=== PATIENT | female | born 1990 | race Caucasian/White ===

== ENCOUNTER 2020-12-09 17:47 | Emergency (ER) | payer OTHER ==
[~2020-12-09] VITALS: Ht 149.9 cm; Wt 75.0 kg
[~2020-12-09 17:47] MED LIST: AMOXICILLIN500 MG PO; CIPRO500 MG OR; FLAGYL500 MG OR; NO CURRENT MEDS; PERIDEX0.12 % MT; ZOFRAN4 M1 OR
[2020-12-09 18:50] LABS: HEMATOCRIT 45.9 % (37.0-47.0); HEMOGLOBIN 14.8 g/dl (12.0-16.0); IMMATURE GRANULOCYTES 0.4 % (0.0-5.0); MEAN CELL VOLUME 91.8 fL CALC (80.0-100.0); MEAN CORPUSCULAR HGB 29.6 pG CALC (26.0-32.0); MEAN CORPUSCULAR HGB CONC 32.2 g/dL CAL (32.0-36.0); NEUT# 17.47 thou/uL (2.00-7.15); RED CELL DISTRI WIDTH 12.6 % (11.5-15.5)
[2020-12-09 18:54] LABS: ALBUMIN 5.1 g/dL (3.2-5.0); ALKALINE PHOSPHATASE 109 u/l (38-126); AMYLASE 57 u/l (30-110); ANION GAP 16 (6-22 (CALC)); BUN 14 mg/dL (7-17); BUN/CREATININE RATIO 20 (12-20 (CALC)); CARBON DIOXIDE 22 mmol/l (22-30); CHLORIDE 103 mmol/l (95-108); CREATININE 0.7 mg/dL (0.5-1.0); GFR > 60 ML/MIN (>=60 (CALC)); GFR FOR AFR.AMER. > 60 ML/MIN (>=60 (CALC)); LIPASE 51 u/l (23-300); SGOT/AST 23 u/l (14-36); SODIUM 136 mmol/l (137-146); TOTAL PROTEIN 8.8 g/dL (6.3-8.2)
[2020-12-09 19:03] LABS: BILIRUBIN, TOTAL 0.7 mg/dL (0.0-1.4)
[2020-12-09 19:10] LABS: BETA-HCG, QUANT(RESULT NUMBER) 10522 mIU/mL
[2020-12-09 19:57] LABS: URINE BLOOD DIPSTICK SMALL (NEGATIVE); URINE COLOR YELLOW; URINE GLUCOSE - DIPSTICK NEGATIVE (NEGATIVE); URINE KETONE 40 mg/dL (NEGATIVE); URINE LEUK ESTERASE TRACE (NEGATIVE); URINE NITRITE - DIPSTICK NEGATIVE (Negative); URINE PROTEIN - DIPSTICK 100 mg/dL (NEG-TRACE); URINE SPECIFIC GRAVITY >=1.030; URINE UROBILINOGEN - DIPSTICK 0.2 E.U./dL (0.2)
[2020-12-09 20:14] LABS: URINE BILIRUBIN - DIPSTICK NEGATIVE (NEGATIVE)
[2020-12-09 20:15] LABS: URINE BACTERIA MANY hpf; URINE SQUAMOUS EPITHELIAL CELL FEW EPI/hpf (0-FEW)
[2020-12-09] MEDS ORDERED: ZOFRAN4 MG/TAB PO (20:19)
[2020-12-09] MEDS ORDERED: KEFLEX500 M1 PO (20:28)
[2020-12-09 20:45] VITALS: BP 119/66
== END 2020-12-09 20:45 | disposition home or self-care (01) | DRG 833 ==
LOC: ED 17:47
DX: O99.611 Diseases of the digestive system complicating pregnancy, first trimester (principal); A08.4 Viral intestinal infection, unspecified; Z3A.08 8 weeks gestation of pregnancy; Z20.822 Contact with and (suspected) exposure to COVID-19

== ENCOUNTER 2021-03-03 | Emergency (ER) | payer BC ==
[~2021-03-03] MED LIST changes: +KEFLEX500 M1 PO; +ZOFRAN4 MG/TAB PO
[2021-03-03] MEDS ORDERED: PRENATAL1 TA1 PO (17:21)
[2021-03-03 17:47] LABS: IMMATURE GRANULOCYTES 0.6 % (0.0-5.0); MEAN CELL VOLUME 89.9 fL CALC (80.0-100.0); MEAN CORPUSCULAR HGB 29.9 pG CALC (26.0-32.0); MEAN CORPUSCULAR HGB CONC 33.2 g/dL CAL (32.0-36.0); NEUT# 11.72 thou/uL (2.00-7.15); RED BLOOD COUNT 4.05 mill/uL (4.20-5.60)
[2021-03-03 17:48] LABS: HEMATOCRIT 36.4 % (37.0-47.0); HEMOGLOBIN 12.1 g/dl (12.0-16.0)
[2021-03-03 17:49] LABS: URINE BLOOD DIPSTICK LARGE (NEGATIVE); URINE GLUCOSE - DIPSTICK NEGATIVE (NEGATIVE); URINE KETONE 15 mg/dL (NEGATIVE); URINE LEUK ESTERASE NEGATIVE (NEGATIVE); URINE PH 5.5 (4.5-8.0); URINE PROTEIN - DIPSTICK 100 mg/dL (NEG-TRACE); URINE SPECIFIC GRAVITY >=1.030; URINE UROBILINOGEN - DIPSTICK 0.2 E.U./dL (0.2)
[2021-03-03 17:51] LABS: URINE BILIRUBIN - DIPSTICK NEGATIVE (NEGATIVE); URINE COLOR AMBER; URINE NITRITE - DIPSTICK NEGATIVE (Negative)
[2021-03-03 17:54] LABS: URINE RBC 50-100 RBC/hpf (0-5); URINE SQUAMOUS EPITHELIAL CELL FEW EPI/hpf (0-FEW); URINE WBC 0-2 WBC/hpf (0-5)
[2021-03-03 18:12] LABS: ANION GAP 11 (6-22 (CALC)); BUN 9 mg/dL (7-17); BUN/CREATININE RATIO 19 (12-20 (CALC)); CARBON DIOXIDE 20 mmol/l (22-30); CHLORIDE 105 mmol/l (95-108); CREATININE 0.5 mg/dL (0.5-1.0); GFR > 60 ML/MIN (>=60 (CALC)); GFR FOR AFR.AMER. > 60 ML/MIN (>=60 (CALC)); POTASSIUM 3.7 mmol/l (3.5-5.1); SODIUM 133 mmol/l (137-146)
[2021-03-03] MEDS ORDERED: LORTAB 5/3255 MG PO (20:18)
[2021-03-03] MEDS ORDERED: TAMSULOSIN0.4 MG PO (20:18)
[2021-03-03] MEDS ORDERED: KEFLEX500 M1 PO (20:20)
== END 2021-03-03 20:48 | disposition home or self-care (01) | DRG 833 ==
PROVIDERS: Emergency Medicine
DX: O26.832 Pregnancy related renal disease, second trimester (principal); N20.0 Calculus of kidney; Z3A.18 18 weeks gestation of pregnancy

== ENCOUNTER 2023-07-12 08:29 | Observation (INO) | payer OTHER ==
[~2023-07-12] VITALS: Ht 149.9 cm; Wt 70.4 kg
[2023-07-12] VITALS (13 sets, daily range): BP systolic 105–137; BP diastolic 56–85
[~2023-07-12 08:29] MED LIST changes: +LORTAB 5/3255 MG PO; +PHENTERMINE H37.5 M1 PO; +PHENTERMINE H37.5 M2 PO; +PHENTERMINE HCL15 MG PO; +PRENATAL1 TA1 PO; +TAMSULOSIN0.4 MG PO
--- NOTE | 2023-07-12 08:56 | NUR ---
AMB TO ROOM 15 WITH STEADY GAIT.
[2023-07-12 09:35] LABS: BASO% 0.2 % (0-3); EOS% 1.6 % (0-8); HEMATOCRIT 36.4 % (37.0-47.0); HEMOGLOBIN 11.4 g/dl (12.0-16.0); IMMATURE GRANULOCYTES 0.2 % (0.0-5.0); LYMPH% 28.9 % (15-41); MEAN CELL VOLUME 93.1 fL CALC (80.0-100.0); MEAN CORPUSCULAR HGB 29.2 pG CALC (26.0-32.0); MEAN CORPUSCULAR HGB CONC 31.3 g/dL CAL (32.0-36.0); MONO% 7.9 % (2-13); NEUT# 3.43 thou/uL (2.00-7.15); NEUT% 61.2 % (42-76); RED BLOOD COUNT 3.91 mill/uL (4.20-5.60); RED CELL DISTRI WIDTH 11.9 % (11.5-15.5)
[2023-07-12 09:51] LABS: URINE BILIRUBIN - DIPSTICK Negative (NEGATIVE); URINE BLOOD DIPSTICK Moderate (NEGATIVE); URINE GLUCOSE - DIPSTICK Negative (NEGATIVE); URINE KETONE Negative (NEGATIVE); URINE LEUK ESTERASE Negative (NEGATIVE); URINE NITRITE - DIPSTICK Negative (Negative); URINE PH 8.5 (4.5-8.0); URINE PROTEIN - DIPSTICK Trace mg/dL (NEG-TRACE); URINE UROBILINOGEN - DIPSTICK 0.2 E.U./dL (0.2)
[2023-07-12 09:56] LABS: URINE COLOR Yellow; URINE EPITHELIAL CELLS FEW EPI/hpf (0-FEW); URINE RBC 25-50 RBC/hpf (0-5)
[2023-07-12 10:04] LABS: ALBUMIN 4.1 g/dL (3.2-5.0); ALKALINE PHOSPHATASE 78 u/l (38-126); BUN 13 mg/dL (7-17); BUN/CREATININE RATIO 21 (12-20 (CALC)); CHLORIDE 106 mmol/l (95-108); CREATININE 0.6 mg/dL (0.5-1.0); GFR FOR AFR.AMER. > 60 ML/MIN (>=60 (CALC)); GFR OTHER RACES > 60 ML/MIN (>=60 (CALC)); LIPASE 77 u/l (23-300); POTASSIUM 3.6 mmol/l (3.5-5.1); SGOT/AST 32 u/l (14-36); TOTAL PROTEIN 7.2 g/dL (6.3-8.2)
[2023-07-12 10:10] LABS: ANION GAP 11 (6-22 (CALC)); BILIRUBIN, TOTAL 0.3 mg/dL (0.02-1.3); CARBON DIOXIDE 27 mmol/l (22-30); SODIUM 140 mmol/l (137-146)
--- NOTE | 2023-07-12 10:50 | NUR ---
PT WITH HOB ELEVATED, AIRWAY PATENT, RESP EVEN AND NON LABORED, SKIN P/W/D.
--- NOTE | 2023-07-12 11:07 | NUR ---
PT SITTING UP IN BED, IVF INFUSING WITHOUT DIFFICULTY, SITE WNL. VSS.
--- NOTE | 2023-07-12 11:49 | NUR ---
pt taken to med surg via wc in stable condition.
--- NOTE | 2023-07-12 12:03 | NUR ---
REPORT RECEIVED FROM JANEL IN ED, PT ARRIVED ON UNIT @ 1135 TRANSPORTED VIA W/C BY ED STAFF AND TRANSFERRED TO BED. ALERT AND ORIENTED X 4, C/O SHARP RUQ PAIN @ 03/18, ORIENED TO ROOM AND CALL MURILLO, SETTLED IN BED, WILL CONTINUE TO MONITOR.
--- NOTE | 2023-07-12 16:37 | NUR ---
OR STAFF HERE AT THIS TIME, RECEIVED PT ON STRETCHER AND TRANSPORTED OFF UNIT TO OR FOR PROCEDURE.
--- NOTE | 2023-07-12 18:56 | NUR ---
PT ARRIVED ON UNIT AT THIS TIME (1849) TRANSPORTED VIA STRETCHER BY OR STAFF, AND TRANSFERRED TO BED. ALERT AND ORIENTED, C/O ABD PAIN @ 01/16. INCISION X [address] TO ABD AND WELL APPROXIMATED WITH DERMA LAKHANI. SCD IN PLACE. HAS A WET COUGH AT THIS TIME BUT NON-PRODUCTIVE, VITAL SIGNS BEING MEASURED, WILL CONTINUE TO MONITOR.
--- NOTE | 2023-07-12 22:21 | NUR ---
RECEIVED SHIFT REPORT. PT IS AWAKE, ALERT AND ORIENTED X 3. ABDOMINAL DRY AND INTACT. HAS PAIN RELIEF FROM IV TORADOL. TAKING ICE CHIPS. VOIDED 400 CC ON COMMODE. IN WITH PT. SAFETY PREC MAINATAINED. CALL LIGHT IN REACH
[2023-07-13 00:04] VITALS: BP 112/76
[2023-07-13 04:19] VITALS: BP 107/54
--- NOTE | 2023-07-13 07:14 | NUR ---
BEDSIDE SHIFT REPORT, PT AWAKE ALERT AND ORIENTED SITTING UP IN BED AND COUGHING, REPORTS EPISODES OF NAUSEA EARLIER AND ABD PAIN @ 4/10 AT THIS TIME, IVF INFUSING, TEDS AND SCD IN PLACE, CALL MURILLO IN REACH AND BED LOCKEN IN LOWEST POSITION.
[2023-07-13 08:02] VITALS: BP 111/59
[2023-07-13] MEDS ORDERED: PERCOCET 5/325M1 TAB PO (10:23)
[2023-07-13] MEDS ORDERED: ONDANSETRON4 MG PO (10:24)
--- NOTE | 2023-07-13 12:46 | NUR ---
Discharge instructions given. Patient verbalizes understanding of same. Discharged in stable condition via Wheelchair to Home with spouse. All belongings sent with pt.
== END 2023-07-13 12:32 | disposition home or self-care (01) | DRG 419 ==
LOC: ED 08:29 → ED-I 10:00 → ED 10:00 → ED-I 10:00 → ED 10:21 → MS2 10:22
PROVIDERS: Family Medicine; ADMIT Surgery; ATTEND Surgery
PROC: 0FT44ZZ Resection of Gallbladder, Percutaneous Endoscopic Approach (ICD-10-PCS; principal; 2023-07-12)
DX: K80.12 Calculus of gallbladder with acute and chronic cholecystitis without obstruction (principal); Z20.822 Contact with and (suspected) exposure to COVID-19
CPT/HCPCS: G0378; J0131; J1100